=== PATIENT | male | born 1960 | race Native Hawaiian/Other Pacific Islander ===

== ENCOUNTER 2017-04-17 11:33 | Outpatient (CLI) | payer BC | END 2017-04-17 19:05 | disposition home or self-care (01) | LOC: RAD 11:33 | DX: M79.605 Pain in left leg (principal) ==

== ENCOUNTER 2017-05-01 15:47 | Outpatient (CLI) | payer BC | END 2017-05-01 16:50 | disposition home or self-care (01) | LOC: RAD 15:47 | DX: M79.605 Pain in left leg (principal); M25.552 Pain in left hip; M54.5 Low back pain ==

== ENCOUNTER 2017-06-22 08:04 | Outpatient (CLI) | payer BC | END 2017-06-22 10:00 | disposition home or self-care (01) | LOC: NM 08:04 | DX: I47.1 Supraventricular tachycardia (principal) | CPT/HCPCS: A9500 ==

== ENCOUNTER 2022-06-24 09:59 | Outpatient (CLI) | payer OTHER | END 2022-06-24 19:28 | disposition home or self-care (01) | LOC: RESP 09:59 | PROVIDERS: ATTEND Nurse Practitioner Family | DX: R53.83 Other fatigue (principal) | CPT/HCPCS: 93005 ==

== ENCOUNTER 2022-10-13 14:25 | Observation (INO) | payer OTHER ==
[~2022-10-13] VITALS: Ht 170.2 cm; Wt 80.4 kg
[2022-10-13 16:13] VITALS: BP 144/78; TEMP 97.3; Ht 170.2 cm; Wt 80.4 kg
[2022-10-13] MEDS ORDERED: ASA LOW DOSE81 MG PO (16:53)
[2022-10-13] MEDS ORDERED: COZAAR100 MG PO (16:53)
[2022-10-13] MEDS ORDERED: BUPROPION HYDR100 M2 PO (16:54)
[2022-10-13] MEDS ORDERED: DILT-XR120 MG PO (17:01)
[2022-10-13] MEDS ORDERED: LEVO0.1T6 PO (17:02)
[2022-10-13] MEDS ORDERED: TESTOSTERON100 MG/ML IM (17:03)
[2022-10-13] MEDS ORDERED: AMBIEN5 MG PO (17:44)
[2022-10-13 17:56] LABS: PLATELET COUNT 266 K/uL (142-355)
[2022-10-13 18:25] LABS: POTASSIUM 3.9 mmol/L (3.6-5.2)
[2022-10-13 19:52] VITALS: BP 150/68; TEMP 99.7
[2022-10-13 23:45] VITALS: BP 132/78; TEMP 98.5
[2022-10-14 04:00] VITALS: BP 142/84; TEMP 98.5
[2022-10-14 08:00] VITALS: BP 132/85; TEMP 98.6
[2022-10-14 12:00] VITALS: BP 157/82; TEMP 98.3
[2022-10-14] MEDS ORDERED: PROZAC10 MG PO (13:53)
== END 2022-10-14 14:55 | disposition home or self-care (01) ==
LOC: MED/SURG 14:25
PROVIDERS: Internal Medicine; ADMIT Internal Medicine; ATTEND Internal Medicine
DX: T78.49XA Other allergy, initial encounter (principal); R21 Rash and other nonspecific skin eruption; R53.1 Weakness; R53.83 Other fatigue; E03.8 Other specified hypothyroidism; I10 Essential (primary) hypertension; F32.A Depression, unspecified; R71.8 Other abnormality of red blood cells
CPT/HCPCS: 80053; 82728; 83540; 83550; 84439; 84443; 84466; 85027; 99220; 99221; G0378; G0379; J1650